=== PATIENT | male | born 1990 | race African-American/Black ===

== ENCOUNTER 2018-01-04 12:43 | Emergency (ER) | payer SELFPAY ==
--- NOTE | 2018-01-04 15:32 | RAD ---
LEFT KNEE 4 VIEWS: DATE: 01/04/18. FINDINGS: No fracture or joint effusion was seen. The joint space is normal in width and the articular surface s are smooth. IMPRESSION: No significant findings. POS: HOME
== END 2018-01-04 14:30 | disposition home or self-care (01) ==
LOC: BURERS 12:43
DX: S83.92XA Sprain of unspecified site of left knee, initial encounter (principal); I10 Essential (primary) hypertension; F41.9 Anxiety disorder, unspecified; W01.0XXA Fall on same level from slipping, tripping and stumbling without subsequent striking against object, initial encounter; Y93.02 Activity, running

== ENCOUNTER 2019-12-18 21:12 | Emergency (ER) | payer OTHER, SELFPAY ==
[2019-12-18] MEDS ORDERED: predniSONE 20 MG TAB ONE (21:32)
[2019-12-18] MEDS ORDERED: Ibuprofen 200 MG TAB ONE (21:32)
== END 2019-12-18 21:39 | disposition home or self-care (01) ==
LOC: BURERS 21:12
DX: J30.9 Allergic rhinitis, unspecified (principal); I10 Essential (primary) hypertension; F41.9 Anxiety disorder, unspecified; F17.210 Nicotine dependence, cigarettes, uncomplicated; Z79.899 Other long term (current) drug therapy
CPT/HCPCS: 99283; J7512

== ENCOUNTER 2022-01-10 21:33 | Emergency (ER) | payer OTHER, SELFPAY ==
[2022-01-10] MEDS ORDERED: Ibuprofen 800 MG TAB ONE (22:29)
== END 2022-01-10 22:30 | disposition home or self-care (01) ==
LOC: BURERS 21:33
DX: M43.6 Torticollis (principal); I10 Essential (primary) hypertension; F17.210 Nicotine dependence, cigarettes, uncomplicated; Z79.899 Other long term (current) drug therapy; X50.0XXA Overexertion from strenuous movement or load, initial encounter; Y92.89 Other specified places as the place of occurrence of the external cause; Y99.0 Civilian activity done for income or pay
CPT/HCPCS: 99283

== ENCOUNTER 2022-04-28 20:47 | Emergency (ER) | payer SELFPAY ==
[2022-04-28] MEDS ORDERED: Albuterol 200 PUFF (6.7GM INHALER) ONE (21:37)
== END 2022-04-28 21:55 | disposition home or self-care (01) ==
LOC: BURERS 20:47
DX: J20.9 Acute bronchitis, unspecified (principal); I10 Essential (primary) hypertension; F17.210 Nicotine dependence, cigarettes, uncomplicated
CPT/HCPCS: 71046

== ENCOUNTER 2022-08-10 18:33 | Emergency (ER) | payer SELFPAY ==
[2022-08-10] MEDS ORDERED: Acetaminophen 500 MG TAB ONE (19:00)
[2022-08-10] MEDS ORDERED: Ondansetron ODT 4 MG TAB ONE (19:00)
== END 2022-08-10 20:30 | disposition home or self-care (01) ==
LOC: BURERS 18:33
DX: B34.9 Viral infection, unspecified (principal); I10 Essential (primary) hypertension; K21.9 Gastro-esophageal reflux disease without esophagitis; F17.210 Nicotine dependence, cigarettes, uncomplicated; Z79.899 Other long term (current) drug therapy
CPT/HCPCS: 87804; 99284; Q0162

== ENCOUNTER 2024-02-21 16:13 | Emergency (ER) | payer SELFPAY ==
[2024-02-21] MEDS ORDERED: Morphine 4 MG/ML VIAL ONE (16:43)
[2024-02-21] MEDS ORDERED: Clindamycin 150 MG CAP ONE (17:00)
[2024-02-21] MEDS ORDERED: Boostrix 0.5 ML (Tdap) VIAL (>/=7 yrs of age) ONE (17:00)
== END 2024-02-21 17:06 | disposition home or self-care (01) ==
LOC: BURERS 16:13
DX: L02.214 Cutaneous abscess of groin (principal); I10 Essential (primary) hypertension; F17.210 Nicotine dependence, cigarettes, uncomplicated; Z79.899 Other long term (current) drug therapy
CPT/HCPCS: 10060; 90471; 90715; 96372; J2270